=== PATIENT | male | born 1945 | race Caucasian/White ===

== ENCOUNTER → 2016-09-18 12:24 | Outpatient (CLI) | payer MEDICARE, OTHER | END | disposition home or self-care (01) | LOC: D.RAD 12:24 | DX: R13.10 Dysphagia, unspecified (principal); R12 Heartburn ==

== ENCOUNTER → 2016-09-24 20:20 | Outpatient (CLI) | payer MEDICARE, OTHER | END | disposition home or self-care (01) | LOC: D.LABREF 20:20 | DX: R31.9 Hematuria, unspecified (principal) ==

== ENCOUNTER 2016-10-20 06:13 | Day surgery (SDC) | payer MEDICARE, OTHER ==
[~2016-10-20] VITALS: Ht 175.3 cm; Wt 64.1 kg
[2016-10-20] MEDS ORDERED: LEVOXYL25 MCG PO (06:45)
[2016-10-20] MEDS ORDERED: ATIVAN0.5 MG PO (06:45)
[2016-10-20] MEDS ORDERED: ADVIL200 MG PO (06:46)
[2016-10-20 07:04] LABS: HEMATOCRIT 45.4 % (42.0-54.0); HEMOGLOBIN 15.3 g/dL (13.5-17.5); MCH 32.6 pg (26.0-34.0); MCHC 33.7 g/dL (31.0-37.0); MCV 96.6 fL (80.0-100.0); MEAN PLATELET VOLUME 9.9 fL (7.4-10.4); RBC 4.7 10x6/uL (4.20-6.10); RDW 13.9 % (11.5-14.5)
[2016-10-20 07:07] VITALS: BP 130/76; Ht 175.3 cm; Wt 64.1 kg
--- NOTE | 2016-10-20 08:50 | NUR ---
0830-RECD FROM GI LAB. ALERT. VOHERBERT IN TO REPORT FINDINGS. 0845-FULL LIQUIDS SERVED.
--- NOTE | 2016-10-20 09:42 | NUR ---
0915-IV D/C AND DRESSED. 919-DISCHARGE INSTRUCTIONS REVIEWED. PRESCRIPTION FOR PROTONIX, GERD DIET [id number] AND NSAIDS TO AVOID HAND-OUT GIVEN. 0930-D/C KIA WITH SON VIA WC
--- NOTE | 2016-10-21 09:13 | OP ---
PATIENT NAME: KIKI KUO MEDICAL RECORD: [id number] :43 LOCATION:[facility] ADMISSION DATE: SURGEON: ROBERT KHOURY DO DATE OF OPERATION: 10/20/2016 PROCEDURE: EGD with biopsies. INDICATIONS FOR PROCEDURE: Dysphagia and heartburn. SCOPE: Olympus video gastroscope. MEDICATIONS: Propofol 120 mg IV per anesthesia. ESTIMATED BLOOD LOSS: Minimal. COMPLICATIONS: None. FINDINGS: Informed consent was given. The patient was made comfortable with the above medication. After reaching an adequate level of sedation by slow IV push, the patient was placed on his left side. The endoscope was then advanced under direct visualization through the mouth to the second portion of the duodenum. There was initially some difficulty passing the cricopharyngeus due to the patient's difficulty with neck flexion and extension and anatomical changes postprocedural to remove a bone spur which was encroaching on the foramen magnum in 2015. The endoscope was advanced beyond this site into the esophagus. The upper, middle, and lower thirds of the esophagus appeared normal. 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 This has been approximately 2 cm in length. Multiple biopsies were taken to submit for histology and to rule out Vela's. The endoscope was advanced into the stomach and retroflexed to view the cardia which appeared normal. The fundus and body of the stomach appeared normal. As you approached the antrum and prepyloric region, there was some erythema and granularity consistent with possible gastritis. Random biopsies were taken to submit for histology and to rule out H. pylori. The endoscope was advanced into the duodenum where there was again some erythema and granularity consistent with duodenitis. The second portion of the duodenum appeared normal. The scope was then withdrawn from the patient. The patient tolerated the procedure well and there were no complications. IMPRESSION: 1. Dysphagia secondary to previous neck procedure. He did have a modified barium swallow in late August which confirmed oropharyngeal dysphagia. There was no comment on that study about esophageal strictures or other abnormalities involving the actual esophagus. He has been given maneuvers regarding this oropharyngeal dysphagia. 2. 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 Biopsies pending. 3. Erythema and granularity of the stomach consistent with gastritis. Biopsies pending. 4. Erythema and granularity of the duodenum. Biopsies pending. PLAN AND RECOMMENDATIONS: 1. Discharge home when recovery parameters are met. 2. Follow up biopsy specimen results. 3. Continue current medications. OPERATIVE REPORT [id number] KIKI KUO 4. Add Protonix 40 mg daily to regimen. 5. Continue learned maneuvers regarding the oropharyngeal dysphagia. If the dysphagia becomes a persistent problem or aspiration is encountered, consideration should be given to placement of a PEG tube. TRANSINT:[id number] Voice Confirmation ID: [id number] DOCUMENT ID: [id number] ROBERT KHOURY DO at 0913 CC: [id number] DICTATION DATE: 10/20/16816 CARROT BUNCHER: 10/20/16 1204 [facility] 10/20/16 [id number] [place] [address]
== END 2016-10-20 10:00 | disposition home or self-care (01) ==
LOC: D.OPS 06:13
PROVIDERS: Anesthesiology
DX: R13.10 Dysphagia, unspecified (principal); K21.0 Gastro-esophageal reflux disease with esophagitis; F17.200 Nicotine dependence, unspecified, uncomplicated; Z01.812 Encounter for preprocedural laboratory examination

== ENCOUNTER 2016-11-13 05:29 | Day surgery (SDC) | payer MEDICARE, OTHER ==
[2016-11-12 14:37] LABS: HEMATOCRIT 42.2 % (42.0-54.0); HEMOGLOBIN 14.4 g/dL (13.5-17.5); MCH 32.5 pg (26.0-34.0); MCHC 34.1 g/dL (31.0-37.0); MCV 95.3 fL (80.0-100.0); MEAN PLATELET VOLUME 9.1 fL (7.4-10.4); RBC 4.43 10x6/uL (4.20-6.10); WBC 5.3 10x3/uL (4.8-10.8)
[~2016-11-13] VITALS: Ht 175.3 cm; Wt 64.4 kg
[~2016-11-13 05:29] MED LIST: ADVIL200 MG PO; ATIVAN0.5 MG PO; LEVOXYL25 MCG PO; PROTONIX40 MG PO; SULFATRIM SUSP100 ML PO
[2016-11-13 07:41] VITALS: BP 144/63; Ht 175.3 cm; Wt 64.4 kg
--- NOTE | 2016-11-13 12:08 | NUR ---
1145--IV DC'D. INDWELLING CATHETER BIG BAG SWITCHED TO LEG BAG, PT VERBALIZES UNDERSTANDING. PT DRESSING AT THIS TIME. TAWNYA CASTRO 1209--DISCHARGE INSTRUCTIONS GIVEN, PT VERBALIZES UNDERSTANDING. PT OFF UNIT VIA WC. TAWNYA CASTRO
--- NOTE | 2016-11-18 08:36 | OP ---
PATIENT NAME: KIKI KUO MEDICAL RECORD: [id number] :43 LOCATION:[facility] ADMISSION DATE: SURGEON: JUAN RUSSELL MD DATE OF OPERATION: 11/13/2016 SURGEON: Juan Russell MD ANESTHESIA: MAC by Hugo Vela CRNA PREOPERATIVE DIAGNOSES: Urinary frequency, urethral stricture, and elevated PSA at 4.95. PROCEDURES: Cystoscopy, direct vision internal urethrotomy, and Kuo catheter insertion over a guidewire. Also transrectal ultrasound and prostate biopsy. FINDINGS: Tight bulbar urethral stricture. Nonobstructive prostate, single ureteral orifices, and no bladder tumors. Prostate 26.5 grams on ultrasound. SPECIMEN: Prostate biopsy cores. BLOOD LOSS: Minimal. CLINICAL HISTORY: This is a 70-year-old male who was initially referred with an elevated PSA of 4.95. He is interested to know if he has prostate cancer or not. His medical history is quite complicated. He had neck surgery in [place], which was complicated by respiratory arrest and he was in the intensive care unit for an extensive period of time. At one time, he had a tracheostomy and a G-tube. He also had a Kuo catheter in for long period of time. Since then, he has urinary frequency every 30 minutes with a slow urinary flow and urgency. Today, we are performing cystoscopy as well as transrectal ultrasound and prostate biopsy. He is not allergic to any medications. He was given Ancef personal service representative to the OR. Due to the patient's problems of GERD and dysphagia, he was placed on the OR table in a head up position. DESCRIPTION OF PROCEDURE: He was then placed into stirrups in lithotomy position. He was given IV sedation. He was prepped and draped. Cystoscopy was performed using a 17-Sinhala cystoscope. Penile urethra was normal up until the bulbar urethra, when a tight pinhole stricture was seen. A guidewire was placed through the stricture into the bladder. We used a 12-degree lens on the optic urethrotome, and using the cold knife at the 12 o'clock position, the stricture was incised. We were then able to pass the scope through. The prostatic urethra was nonobstructive. Going into the bladder, the bladder was normal. Leaving the guidewire in place, the cystoscope was removed. A [place]-tip Kuo catheter was then placed into the bladder over the guidewire. Once the catheter was in the bladder, the balloon was inflated with 10 cc of sterile water. The guidewire was then removed entirely. The catheter was put to bag drainage. We then placed the rectal probe in and made measurements of the prostate. Prostate volume was estimated at 26.5 grams. No hypoechoic areas were seen. The Kuo catheter and the Kuo catheter balloon were seen on the ultrasound. Sextant biopsies were then obtained. At least 3 cores were obtained from each sextant. Once the biopsies were obtained, the patient was awakened and brought back to the preoperative holding area. The patient will require the Kuo catheter for a period of 7-10 days and then I will see him back in the office to remove the catheter and review the pathology with him. OPERATIVE REPORT [id number] KIKI KUO TRANSINT:[id number] Voice Confirmation ID: [id number] DOCUMENT ID: [id number] JUAN RUSSELL MD at 0836 CC: [id number] DICTATION DATE: 11/13/16 1019 [employer]OL AIDE: 11/13/16 1208 [facility] 11/13/16 [id number] [place] [address]
== END 2016-11-13 12:05 | disposition home or self-care (01) ==
LOC: D.OPS 05:29 → D.PAN 08:50 → D.OPS 09:00
PROVIDERS: Anesthesiology
DX: R97.20 Elevated prostate specific antigen [PSA] (principal); F17.200 Nicotine dependence, unspecified, uncomplicated; E03.9 Hypothyroidism, unspecified; K21.9 Gastro-esophageal reflux disease without esophagitis; Z01.812 Encounter for preprocedural laboratory examination

== ENCOUNTER → 2017-11-13 09:22 | Outpatient (CLI) | payer MEDICARE, OTHER ==
[2016-11-13 07:41] VITALS: BMI 21.0
== END | disposition home or self-care (01) ==
LOC: D.CT 09:22
DX: M54.12 Radiculopathy, cervical region (principal)

== ENCOUNTER 2020-05-02 05:15 | Observation (INO) | payer MEDICARE, OTHER ==
[2020-05-02] VITALS (25 sets, daily range): BP systolic 112–162; BP diastolic 58–89; Ht 175.3 cm; Wt 62.3 kg
[~2020-05-02] VITALS: Ht 175.3 cm; Wt 62.3 kg
[2020-05-02] MEDS ORDERED: ACETAMINOPHEN500 M1 PO (06:33)
[2020-05-02 06:51] LABS: BASOPHILS 0.8 % (0-2); EOSINOPHILS 4.1 % (0-7); HEMATOCRIT 40.2 % (42.0-54.0); HEMOGLOBIN 13.2 g/dL (13.5-17.5); IMMATURE GRANULOCYTES 0.2 % (0-5); LYMPHOCYTE ABS# 1.27 10x3/uL (1.32-3.57); LYMPHOCYTES 19.9 % (15-50); MCHC 32.8 g/dL (31.0-37.0); MCV 97.3 fL (80.0-100.0); MEAN PLATELET VOLUME 9.1 fL (7.4-10.4); MONOCYTES 11.5 % (2-11); NEUTROPHIL ABS# 4.05 10x3/uL (1.78-5.38); NEUTROPHILS 63.5 % (40-80); RBC 4.13 10x6/uL (4.20-6.10); RDW 13.2 % (11.5-14.5); WBC 6.4 10x3/uL (4.8-10.8)
[2020-05-02 06:53] LABS: ANION GAP 12.1 mmol/L (8-16); CALCIUM 8.8 mg/dL (8.5-10.1); CREATININE - SERUM 1.1 mg/dL (0.6-1.3); POTASSIUM - SERUM 4.1 mmol/L (3.5-5.1)
[2020-05-02 07:05] LABS: PLATELET COUNT 281 10x3/uL (130-400)
[2020-05-02 07:50] LABS: INR 1.14 (0.85-1.17); PROTIME 13.5 SECONDS (11.6-15.0)
[2020-05-02 08:08] LABS: APTT 28.9 SECONDS (22.8-39.4)
--- NOTE | 2020-05-02 08:53 | NUR ---
PT IN ROOM AT 0716. DIFFICULT INTUBATION. CANCELLED CASE AT 0810 DUE TO DIFFICULT AIRWAY. PT TO PACU AT 0835 THEN WILL GO TO CVICU.
[2020-05-03] VITALS (11 sets, daily range): BP systolic 95–118; BP diastolic 53–76
--- NOTE | 2020-05-03 00:20 | NUR ---
PT DENIES C/O DIFF BREATHING DURING SHIFT. PT DID NOT WANT SLEEPING ASSISTANCE MED OF ATIVAN. REFUSED. MED WASTED. RESP EVEN AND UNLABORRED. WILL CONT TO MONITOR.
--- NOTE | 2020-05-03 08:56 | OP ---
PATIENT NAME: KIKI KUO MEDICAL RECORD: [id number] :43 LOCATION:[facility].2303 ADMISSION DATE:05/02/20 SURGEON: HODA HARMON MD DATE OF OPERATION: 05/02/2020 PREOPERATIVE DIAGNOSIS: Lumbar spinal stenosis at L4-5. POSTOPERATIVE DIAGNOSIS: Lumbar spinal stenosis at L4-5. PROCEDURE: Aborted surgery after failure to obtain endotracheal airway by Anesthesia. DESCRIPTION OF TECHNIQUE: Upon entering the operating room, multiple attempts were made by Anesthesia to gain an endotracheal access. These were not successful. Therefore, the procedure was aborted to avoid any excess risk of airway compromise to the patient. It was decided to take him to the recovery room, monitor his airway and then perhaps come back on a later date with other possibilities such as a tracheostomy or a different airway access. We will consult Dr. Quintero from [facility] to decide what options we have for airway access in the future. TRANSINT:[id number] Voice Confirmation ID: [id number] DOCUMENT ID: [id number] HODA HARMON MD at 0856 CC: [id number] DICTATION DATE: 05/02/20 1643 PAINTER PLATE: 05/02/20 2328 ADM IN [facility] [address] [place] [address]
== END 2020-05-03 11:18 | disposition home or self-care (01) ==
LOC: D.OPS 05:15 → D.ICU 10:00 → OBSVTIME 10:00 → D.ICU 05-03 11:18
PROVIDERS: Anesthesiology; ADMIT Neurological Surgery; ATTEND Neurological Surgery
DX: M48.061 Spinal stenosis, lumbar region without neurogenic claudication (principal); Z53.9 Procedure and treatment not carried out, unspecified reason; E03.9 Hypothyroidism, unspecified